=== PATIENT | female | born 1940 | race Caucasian/White ===

== ENCOUNTER → 2016-12-29 | Day surgery (SDC) | payer MEDICARE, OTHER ==
[~2016-12-29] VITALS: Ht 152.4 cm; Wt 70.8 kg
[~2016-12-29] MED LIST: *RESP: ALBUTEROL 2.5 MG/3 ML NEB (PRN) PERIprocedural Use ONLY NEB ONE; ACET650S4 RECTAL; ACETAMINOPHEN/HYDROcodone 325 MG/5 MG TAB PO PRN; ADVA230A INH; ALPR0.25 PO; ALUM1SUS PO; AMIT25TA9 PO; ASPI-110 PO; ATOR40TA16 PO; BACL10TA PO; BENI5TAB4 PO; BENZ1CAP8 PO; BUME1TAB28 PO; CARA1TAB6 PO; CHLORHEXIDINE GLUCONATE 4% SOLN 120 ML BTL TOPICAL SCH; CLINDAMYCIN INJ 600 MG in SODIUM CHLORIDE 0.9% INJ 100 ML IV ONE; COUM3TAB PO; COUM4TAB PO; DO NOT ADM ANY ANTICOAGULANT DRUGS PRN; DOXY100C PO; DULC10SU3 RECTAL; FAMOTIDINE 20 MG/2 ML VIAL ONE; FLUT1SPR5 EACH NARE; GENTAMICIN SULFATE 80 MG/2 ML VIAL ONE; GLIM1TAB PO; GUAISYP4 PO; HYDR-3533 PO; IPRA1POW8 NEB; ISOS30TA3 PO; KETOROLAC TROMETHAMINE 30 MG/ML (IVP) VIAL IVP ONE; LYRI100C PO; MELA0.02 PO; MIDAZOLAM HCL 2 MG/2 ML VIAL ONE; MILK2400 PO; MORPHINE SULFATE 4 MG/ML INJ IV PUSH PRN; MULT1TAB84 PO; NITR1SUB3 SL; OMEP20CA2 PO; ONDANSETRON HCL 4 MG/2 ML VIAL IV PRN; ONDANSETRON HCL 4 MG/2 ML VIAL IV PUSH ONE; OSCA200T PO; PHENYLEPHRINE HCL 10 MG/ML VIAL IV ONE; POTA-163 PO; PRED5TAB PO; PROPOFOL 200 MG/20 ML AMP IV ONE; ROPI.5 PO; SODIUM CHLOR 0.9% 250 ML INJ 250 ML IV ONE; SODIUM CHLORIDE 0.9% FLUSH 10 ML FLUSH IV FLUSH PRN; SODIUM CHLORIDE 0.9% FLUSH 10 ML FLUSH IV FLUSH SCH; SULF500T3 PO; THERSOL2 EACH EYE; TRAM50TA PO; VANCOMYCIN 1000 MG/NS 250 ML (for <70 kg) IV SCH; VENTAER INH; VITA10002 PO; VITA200012 PO; ceFAZolin 2 GM PREMIX 50 ML IV SCH; ePHEDrine/NS 25 MG/5 ML SYR IV ONE; fentaNYL CITRATE 250 MCG/5 ML AMP ONE
[2016-12-29 11:18] VITALS: BP 117/65; PULSE 77; RESP 20; TEMP 98.5; O2SAT 96
[2016-12-29 11:40] LABS: PROTHROMBIN TIME - PATIENT 11.6 SEC (9.8-11.6)
--- NOTE | 2016-12-29 16:01 | PD.OP ---
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 Surgeon: Kiko Varghese Log Manager(s): Staff Resident Surgeon: None Operation and Findings: Please see preoperative office dictations for the more detailed surgical indication. Informed consent obtained, operative site was marked. sHe was brought to the operating room and placed on the operating room table. sHe was given intravenous sedation, general endotracheal anesthesia. sHe received IV antibiotics and was placed in the lateral decubitus position. Foot and leg were prepped with alcohol, followed by Hibiclens, draped in usual sterile fashion. A time out procedure was preformed. There was a 1 x 1.5cm wound at the distal lateral fibula with fibrinous exudate , some yellowish discharge and exposed hardware. The procedure began with a five inch incision over the lateral aspect fibula. A full thickness flap was carefully elevated. The wound edges were excised and debrided to obtain good bleeding tissue. The plate was visualized. The the plate and screws removed successfully. The bone surface was cleaned with a curette and rongeur. Soft tissue and bony sample was sent for cultures. Final fluoroscopy was used to confirm complete removal of the lateral fibular plate. The medial malleolar hardware was left in place. Incision was thoroughly irrigated. Hemostasis was confirmed. Fascia layer was closed 0 PDS, the skin and subcutaneous tissue closed with 2-0 PDS and 2-0 nylon at the skin. Sterile dressings were applied the patient was placed into a well molded padded splint. The patient was transferred to the Recovery Room in stable condition. POSTP-OP PLAN OF ACTIVITY Antibiotics: vancomycin Antiocoagulation: ok to resume coumadin tomorrow Weight bearing status: NWB LLE Do not remove splints/cast. Dispo: expected discharge to SNF from PACU Kiko Varghese Jr., MD Dec 29, 2016 16:01 Future procedure planned: [] Dispo: expected discharge 2-3 days. Kiko Varghese Jr., MD Dec 29, 2016 16:01
[2016-12-29 17:45] VITALS: BP 136/59; PULSE 100; RESP 18; TEMP 97.8; O2SAT 92
--- NOTE | 2016-12-29 18:19 | RADRPT ---
EXAM DATE/TIME: 12/29/2016 15:11 [facility] COMPARISON: No previous studies available for comparison. INDICATIONS : Hardware removal left ankle. MEDICAL HISTORY : None. SURGICAL HISTORY : None. ENCOUNTER: Initial ACUITY: 1 day PAIN SCORE: Non-responsive. LOCATION: Left ankle. FINDINGS: Two films from the OR have been obtained. There appears to be a single screw through the medial mall eolus and distal tibia. There are tracks from prior surgical hardware seen in the distal fibula. Thi s fibular plate has been removed. The ankle appears normally aligned. CONCLUSION: Single screw thorough the medial malleolus and distal tibia. Rolando Nolasco MD on December 29, 2016 at 18:12 Board Certified Radiologist. This report was verified electronically.
== END | disposition home or self-care (01) ==
LOC: HSDC 10:22
PROVIDERS: ATTEND Orthopaedic Surgery
DX: T84.89XA Other specified complication of internal orthopedic prosthetic devices, implants and grafts, initial encounter (principal); I10 Essential (primary) hypertension; E78.5 Hyperlipidemia, unspecified; J45.909 Unspecified asthma, uncomplicated
CPT/HCPCS: 01480; 20680; 73600; 76000; 85610; 86403; 86850; 86900; 86901; 87015; 87070; 87102; 87116; 87176; 87205; 87206; 94664; J1580; J2370; J2405; J3010; J3370; J7050; J7613; 87077; 87186; J2250